=== PATIENT | male | born 1990 | race Caucasian/White ===

== ENCOUNTER 2019-09-22 15:04 | Emergency (ER) | payer SELFPAY ==
[2019-09-22 15:06] VITALS: BP 126/89; PULSE 75; RESP 18; O2SAT 98; BMI 33.3
--- NOTE | 2019-09-22 15:19 | [facility].EDGENADL ---
ED Disposition Clinical Impression: Medical clearance for incarceration Disposition: Home, Self-Care Condition on Discharge: Good Referrals: Provider,Referral, [Primary Care Provider] - Time of Disposition: 15:21 - Critical Care Critical Care Time: No Attestation: On 09/22/19, the high probability of a clinically significant, sudden or life threatening deterioration of the following system(s) required my full and direct attention, intervention and personal management. The time I documented below is in addition to time spent performing reported procedures but includes the following listed in this critical care notation. Medical Decision Making - Medical Records Medical records reviewed: Yes: I reviewed the patient's medical records. - Malachi Inquiry Pt receiving controlled substance: No Malachi was queried for this patient: No - Lab Data Lab results reviewed: Yes: I reviewed the patient's lab results. 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 History - Hepatitis A Screen Attestation statement:: This patient has been screened for Hepatitis A risk factors. I have reviewed the patient's past medical history: Yes ROS Obtained: Yes All systems reviewed & no additional complaints - Cardiovascular Cardiovascular: Denies chest pain, Denies chest pain at rest - Respiratory Respiratory: No chest congestion, No cough - Gastrointestinal Gastrointestingal: Denies: abdominal pain - Musculoskeletal Musculoskeletal: Denies joint pain, Denies joint stiffness, Denies joint swelling - Integumentary/Breasts Skin/Breast: Denies redness, Denies sores - Neurologic Neurologic: Denies abnormal speech, Denies behavioral changes, Denies confusion - Hematologic/Lymphatic Henatologic/Lymphatic: Denies system reviewed and no additional complaints, except as docu, Denies easy bleeding, Denies easy bruising Physical Exam - General General appearance: alert, in no apparent distress - Head Head exam: atraumatic - Respiratory Respiratory exam: Present: normal lung sounds bilaterally. Absent: respiratory distress - Cardiovascular Cardiovascular exam: Present: regular rate, normal rhythm. Absent: JVD - Abdominal Exam Abdominal exam: Present: soft, normal bowel sounds. Absent: distention, tenderness, guarding - Extremities Exam Extremities exam: Present: normal inspection, full ROM, normal capillary refill. Absent: calf tenderness - Back Exam Back exam: Present: normal inspection. Absent: tenderness - Neurological Exam Neurological exam: Present: alert, oriented X3 - Psychiatric Psychiatric exam: Present: normal affect, normal mood - Skin Skin exam: Present: warm, dry, intact, normal color - Lymphatic Lymphatic Findings: no adenopathy
[2019-09-22 15:30] VITALS: BP 111/78; PULSE 68; RESP 18; TEMP 36.7; O2SAT 100
[2019-09-22 15:36] VITALS: BP 111/65; PULSE 78; RESP 16; TEMP 36.6; O2SAT 98
== END 2019-09-22 15:37 ==
PROVIDERS: Emergency Provider Emergency Medicine
DX: Z00.8 Encounter for other general examination (principal)
CPT/HCPCS: 99282